=== PATIENT | male | born 1960 | race Caucasian/White ===

== ENCOUNTER 2018-01-04 11:39 | Emergency (ER) | payer OTHER ==
[~2018-01-04] VITALS: Ht 177.8 cm; Wt 104.3 kg
[2018-01-04 12:04] LABS: ABSOLUTE BASOPHIL COUNT 0.2 /CUMM (0.0-0.2); ABSOLUTE EOSINOPHIL COUNT 0.1 /CUMM (0.0-0.7); ABSOLUTE GRANULOCYTE CT 13.6 /CUMM (1.4-6.5); ABSOLUTE LYMPH COUNT 4.3 /CUMM (1.2-3.4); ABSOLUTE MONOCYTE COUNT 0.8 /CUMM (0.10-0.60); EOSINOPHIL % 0.5 % (0-5); GRANULOCYTE % 71.7 % (42.2-75.2); HEMATOCRIT 47.1 % (42-52); MEAN CORPUSCULAR HGB 29.7 PG (27.0-31.0); MEAN CORPUSCULAR VOLUME 87.1 FL (80.0-94.0); MEAN PLATELET VOLUME 7.9 FL (7.4-10.4); PLATELET COUNT 215 /CUMM (130-400); RED BLOOD CELL CT 5.41 /CUMM (4.70-6.10)
--- NOTE | 2018-01-04 12:25 | ED GI/GU/ABDOMINAL COMPLAINT ---
History of Present Illness General Chief Complaint: Abdominal Pain/Flank Pain Stated Complaint: L SIDE ABD PAIN Source: patient Exam Limitations: no limitations Vital Signs & Intake/Output Vital Signs & Intake/Output Vital Signs Date Time Temp Pulse Resp B/P B/P Pulse O2 O2 Flow FiO2 Mean Ox Delivery Rate 01/04 1354 76 136/88 01/04 1146 97.2 93 15 138/81 97 Room Air Room Air Allergies Coded Allergies: No Known Allergies (01/04/18) Reconcile Medications Ciprofloxacin HCl (Cipro) 500 MG TABLET 1 TAB PO BID diverticulitis Gabapentin 300 MG CAPSULE 1 CAP PO TID PAIN (Reported) Losartan/Hydrochlorothiazide (Losartan-Hctz 100-12.5 MG Tab) 100 MG-12.5 MG TABLET 1 TAB PO DAILY HEART (Reported) Metoprolol Succinate 100 MG TAB.ER.24H 1 TAB PO DAILY HEART (Reported) Metronidazole (Flagyl) 500 MG TABLET 1 TAB PO TID DIVERTICULITIS Rosuvastatin Calcium (Crestor) 5 MG TABLET 1 TAB PO DAILY CHOLESTEROL ( Reported) Tramadol HCl 50 MG TABLET 1-2 TAB PO BIDP PRN PAIN Triage Note: PT TO ED FOR C/C OF LLQ ABD PAIN THAT STARTED LAST NIGHT AND IS NOW CONSTANT. DENIES N/V/D. SOFTER STOOL THIS MORNING BUT DENIES BLOOD IN STOOL. DENIES FEVERS. DENIES SYMPTOMS. Triage Nurses Notes Reviewed? yes Onset: Abrupt Duration: day(s): (1), constant, continues in ED Timing: recent history Quality/Severity: moderate, sharpness Location: left lower quadrant Radiation: no radiation Activities at Onset: none No Modifying Factors: none HPI: 57-year-old male comes into the emergency room for further evaluation of left lower abdominal pain. Symptoms were going on for the past day getting progressively worse. Denies any fever chills vomiting. Denies any change in bowel movement. Patient had a colonoscopy and was told he had diverticulosis. He reports that she's been doing a juice cleanse recently. (Mika Ballard) Past History Travel History Traveled to [place] past 21 day No Medical History Any Pertinent Medical History? see below for history Neurological: NONE EENT: NONE Cardiovascular: hypertension, hyperlipidemia Respiratory: NONE Gastrointestinal: NONE Hepatic: NONE Renal: NONE Musculoskeletal: SPINAL STENOSIS Psychiatric: NONE Endocrine: NONE Blood Disorders: NONE Cancer(s): NONE ASSET RECOVERY SPECIALIST/Reproductive: NONE Surgical History Surgical History: no abdominal surgeries Psychosocial History What is your primary language Bulgarian Tobacco Use: Quit >30 days ago ETOH Use: denies use Illicit Drug Use: denies illicit drug use Family History Hx Contributory? No (Mika Ballard) Review of Systems Review of Systems Constitutional: Reports: no symptoms. EENTM: Reports: no symptoms. Respiratory: Reports: no symptoms. Cardiovascular: Reports: no symptoms. GI: Reports: see HPI. Genitourinary: Reports: no symptoms. Musculoskeletal: Reports: no symptoms. Skin: Reports: no symptoms. Neurological/Psychological: Reports: no symptoms. Hematologic/Endocrine: Reports: no symptoms. Immunologic/Allergic: Reports: no symptoms. All Other Systems: Reviewed and Negative (Mika Ballard) Physical Exam Physical Exam General Appearance: well developed/nourished, no apparent distress, alert, awake Head: atraumatic, normal appearance Eyes: Bilateral: normal appearance, EOMI. Ears, Nose, Throat, Mouth: hearing grossly normal, moist mucous membrane Neck: normal inspection Respiratory: no respiratory distress Gastrointestinal: soft, tenderness Back: normal inspection Extremities: normal range of motion Neurologic/Psych: awake, alert, oriented x 3, normal gait Skin: intact, normal color Core Measures ACS in differential dx? No Sepsis Present: No Sepsis Focused Exam Completed? No (Mika Ballard) Progress Differential Diagnosis: appendicitis, biliary colic, diverticulitis, gastritis, ischemic bowel, urinary retention, urethritis, UTI/pyelo Plan of Care: Orders Procedure Date/time Status LIPASE 01/04 1149 Complete LACTIC ACID 01/04 1149 Complete COMPREHENSIVE METABOLIC PANEL 01/04 1149 Complete CBC WITHOUT DIFFERENTIAL 01/04 1149 Complete Laboratory Tests 01/04/18 1152: Anion Gap 15, Estimated GFR > 60, BUN/Creatinine Ratio 18.0, Glucose 145 H, Lactic Acid 2.2 H, Calcium 9.7, Total Bilirubin 0.9, AST 24, ALT 32, Alkaline Phosphatase 85, Total Protein 7.5, Albumin 4.6, Globulin 2.9, Albumin/Globulin Ratio 1.6, Lipase 116, CBC w Diff MAN DIFF ORDERED, RBC 5.41, MCV 87.1, MCH 29.7 , MCHC 34.0, RDW 13.0, MPV 7.9, Gran % 71.7, Lymphocytes % 22.5, Monocytes % 4.3 , Eosinophils % 0.5, Basophils % 1.0, Absolute Granulocytes 13.6 H, Absolute Lymphocytes 4.3 H, Absolute Monocytes 0.8 H, Absolute Eosinophils 0.1, Absolute Basophils 0.2, Platelet Estimate ADEQUATE, Normocytic RBCs VERIFIED, Normochromic RBCs VERIFIED Diagnostic Imaging: Viewed by Me: CT Scan. Discussed w/RAD: CT Scan. Radiology Impression: PATIENT: BARBARA STEELE PRESENT AGE: 57 PATIENT ACCOUNT NO: [id number] : [id number] LOCATION: [facility] ORDERING PHYSICIAN: Mika POMPA SERVICE DATE: 01/04/18 EXAM TYPE : CAT - CT ABD & PELVIS W IV CONTRAST EXAMINATION: CT ABDOMEN AND PELVIS WITH CONTRAST CLINICAL INFORMATION: Left lower quadrant pain. Diverticulitis. COMPARISON: 11/13/2010 TECHNIQUE: Multidetector volumetric imaging was performed of the abdomen and pelvis following IV administration of 95 mL of Optiray 320 intravenous contrast. Sagittal and coronal reformatted images were obtained on the technologist's workstation. DLP: 680 mGy-cm FINDINGS: LUNG BASES: The visualized lung bases are unremarkable. LIVER, GALLBLADDER, AND BILIARY TREE: The liver is normal in size, shape, and attenuation. No focal hepatic lesion or biliary ductal dilatation is present. The gallbladder is unremarkable with no evidence of radiopaque gallstones, gallbladder wall thickening, or obvious pericholecystic inflammatory changes. PANCREAS: Unremarkable. SPLEEN: Unremarkable. ADRENAL GLANDS: Unremarkable. KIDNEYS AND URETERS: The kidneys are normal in size, shape, and attenuation. There is no hydronephrosis or hydroureter. There is a right lower pole 0.4 cm calculus which is 12.5 cm from the posterior axillary line. There is a left midpole 0.8 cm cyst. BLADDER: Unremarkable. GASTROINTESTINAL TRACT: The stomach is unremarkable. The small bowel is normal in caliber. No obstruction. Normal appendix. There is diverticulosis of the descending colon and sigmoid colon. There is focal wall thickening at the proximal sigmoid colon with adjacent inflammation, consistent with diverticulitis. No free air or fluid collection. There is an adjacent fat lobule noted as well which could represent an infarcted epiploic appendage. ABDOMINAL WALL: Fat-containing right inguinal hernia. This is similar to previous. LYMPH NODES: Normal. VASCULAR: Normal caliber aorta with scattered atherosclerotic calcifications. Circumaortic left renal vein. PELVIC VISCERA: The prostate and seminal vesicles are unremarkable. OSSEOUS STRUCTURES: No acute or suspicious osseous abnormality. Multilevel degenerative changes of the spine. Mild degenerative changes at both hips. IMPRESSION: Sigmoid diverticulitis. No free air or fluid collection. Adjacent fat lobule may represent infarcted epiploic appendage. Nonobstructing right lower pole 0.4 cm calculus. This critical result was discussed with Mika Pollack MD by telephone at 01/04/2018 1:07 PM and it was ascertained that the content and urgency of the report was understood at the time of direct communication. DICTATED BY: Weston VELA, Lazarus DATE/TIME DICTATED:01/04/181300 ERGONOMIST:KALR DATE/TIME TRANSCRIBED:01/04/181300 CONFIDENTIAL, DO NOT COPY WITHOUT APPROPRIATE AUTHORIZATION. <Electronically signed in Other Vendor System> SIGNED BY: Weston VELA,Lazarus 01/04/18 1318 Initial ED EKG: none Comments: 01/04/2018 2:16:13 PM Patient clinically looks well. Patient is in no apparent distress. Patient is nontoxic-appearing. No evidence of perforation or abscess. Started on oral antibiotics. Follow-up for colonoscopy. (Ranjeet POMPA,Mika) Departure Departure Disposition: HOME OR SELF CARE Condition: Stable Clinical Impression Primary Impression: Diverticulitis Referrals: Carole VELA,Roque Hayward (PCP/Family) Additional Instructions: Drink plenty of water. Clear liquid diet for the next 24 hours. Take ciprofloxacin and Flagyl as prescribed. Return if any increased pain, fever, vomiting, or any other concerns. Follow-up with furnace cooler. Please go over all results of today's visit with your primary care doctor. Contact your primary care doctor to let them know you were here in the emergency room. There may be nonspecific findings which may not be related to your visit today here in the emergency room but may require further evaluation and chronic monitoring by your primary care doctor. If you had a laceration today the chance of foreign body always remains. You should follow-up with your primary care doctor for recheck in 3-5 days for a wound check. If you had an x-ray done there is a chance that a fracture could have been missed on initial read and you should follow-up with your primary care doctor for repeat x-rays if symptoms persist. If your blood pressure was elevated here in the emergency room please have rechecked by hyour primary care doctor within the next 48. If you were prescribed a narcotic here in the emergency room or any type of controlled substances you're not allowed to drive while taking this medication or operate any type of heavy machinery. Narcotics can make you feel lightheaded dizziness nausea and can cause constipation. You may need to order picker a stool softener. Thank you for choosing [facility] emergency room. Please return to the emergency room immediately if you have any other concerns worsening of symptoms. Departure Forms: Customer Survey General Discharge Information Prescriptions: Current Visit Scripts Ciprofloxacin HCl (Cipro) 1 TAB PO BID #20 TAB Metronidazole (Flagyl) 1 TAB PO TID #30 TAB Tramadol HCl 1-2 TAB PO BIDP PRN PAIN #15 TAB (Mika Ballard) PA/FARE ENFORCEMENT OFFICER Co-Sign Statement Statement: ED Attending supervision documentation- x I saw and evaluated the patient. I have also reviewed all the pertinent lab results and diagnostic results. I agree with the findings and the plan of care as documented in the PA's/FARE ENFORCEMENT OFFICER's documentation. [] I have reviewed the ED Record and agree with the PA's/FARE ENFORCEMENT OFFICER's documentation. [] Additions or exceptions (if any) to the PAs/FARE ENFORCEMENT OFFICER's note and plan are summarized below: [] (Carrie VELA,Terrence)
[2018-01-04] MEDS ORDERED: GABAPENTIN300 M2 PO (12:30)
[2018-01-04] MEDS ORDERED: CRESTOR5 M1 PO (12:30)
[2018-01-04] MEDS ORDERED: METOPROLOL SUC100 M2 PO (12:30)
[2018-01-04] MEDS ORDERED: LOSARTAN-HCTZ1 EACH PO (12:31)
[2018-01-04] MEDS ORDERED: CIPRO500 M1 PO (13:12)
[2018-01-04] MEDS ORDERED: FLAGYL500 MG PO (13:12)
--- NOTE | 2018-01-04 13:15 | CT SCAN REPORT ---
EXAMINATION: CT ABDOMEN AND PELVIS WITH CONTRAST CLINICAL INFORMATION: Left lower quadrant pain. Diverticulitis. COMPARISON: 11/13/2010 TECHNIQUE: Multidetector volumetric imaging was performed of the abdomen and pelvis following IV administration of 95 mL of Optiray 320 intravenous contrast. Sagittal and coronal reformatted images were obtained on the technologist's workstation. DLP: 680 mGy-cm FINDINGS: LUNG BASES: The visualized lung bases are unremarkable. LIVER, GALLBLADDER, AND BILIARY TREE: The liver is normal in size, shape, and attenuation. No focal hepatic lesion or biliary ductal dilatation is present. The gallbladder is unremarkable with no evidence of radiopaque gallstones, gallbladder wall thickening, or obvious pericholecystic inflammatory changes. PANCREAS: Unremarkable. SPLEEN: Unremarkable. ADRENAL GLANDS: Unremarkable. KIDNEYS AND URETERS: The kidneys are normal in size, shape, and attenuation. There is no hydronephrosis or hydroureter. There is a right lower pole 0.4 cm calculus which is 12.5 cm from the posterior axillary line. There is a left midpole 0.8 cm cyst. BLADDER: Unremarkable. GASTROINTESTINAL TRACT: The stomach is unremarkable. The small bowel is normal in caliber. No obstruction. Normal appendix. There is diverticulosis of the descending colon and sigmoid colon. There is focal wall thickening at the proximal sigmoid colon with adjacent inflammation, consistent with diverticulitis. No free air or fluid collection. There is an adjacent fat lobule noted as well which could represent an infarcted epiploic appendage. ABDOMINAL WALL: Fat-containing right inguinal hernia. This is similar to previous. LYMPH NODES: Normal. VASCULAR: Normal caliber aorta with scattered atherosclerotic calcifications. Circumaortic left renal vein. PELVIC VISCERA: The prostate and seminal vesicles are unremarkable. OSSEOUS STRUCTURES: No acute or suspicious osseous abnormality. Multilevel degenerative changes of the spine. Mild degenerative changes at both hips. IMPRESSION: Sigmoid diverticulitis. No free air or fluid collection. Adjacent fat lobule may represent infarcted epiploic appendage. Nonobstructing right lower pole 0.4 cm calculus. This critical result was discussed with Mika Pollack MD by telephone at 01/04/2018 1:07 PM and it was ascertained that the content and urgency of the report was understood at the time of direct communication.
[2018-01-04] MEDS ORDERED: TRAMADOL HCL50 M1 PO (13:38)
[2018-01-04 13:54] VITALS: BP 136/88
== END 2018-01-04 13:55 ==
LOC: ERH 11:39
PROVIDERS: Physician Assistant Medical
DX: K57.92 Diverticulitis of intestine, part unspecified, without perforation or abscess without bleeding (principal)
CPT/HCPCS: 74177